=== PATIENT | male | born 1955 | race Hispanic/Latino ===

== ENCOUNTER 2016-10-10 13:59 | Emergency (ER) | payer BC ==
[2016-10-10] MEDS ORDERED: NACL 0.9% 1000 ML 1,000 ML IV ONE (14:24)
[2016-10-10] MEDS ORDERED: ZOFRAN IV ONE (14:34)
--- NOTE | 2016-10-10 14:58 | Emergency Department Report ---
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 He denies any fever. After the patient had multiple episodes of vomiting and/or retching he developed some midsternal chest discomfort. That is improved but is not completely resolved. Patient doesn't history of coronary artery disease with DE but did just have a negative stress test a few weeks ago with his public welfare director, Dr. Claude Parry. He has not taken anything for symptoms prior to coming into the emergency department. Patient has a past medical history of Crohn's as well for which she takes effusions monthly. His primary care doctor is Dioni Diop and his stock checkerer is Dr. Motley. No recent travel. ED Past Medical Hx - Past Medical History Previous Medical History?: Yes Hx Hypertension: Yes Hx Heart Attack/AMI: Yes (1996) Hx Congestive Heart Failure: No Hx Diabetes: No Hx Pulmonary Embolism: Yes Hx Asthma: No Hx COPD: No Additional medical history: CAD, STENT PLACMENT X 7. , Hx. of Crohn disease - Surgical History Past Surgical History?: Yes Hx Coronary Stent: Yes (7) Hx Open Heart Surgery: Yes Hx Cholecystectomy: Yes Additional Surgical History: CABG - Social History Smoking Status: Unknown if ever smoked Substance Use Type: None - Medications Home Medications: Home Medications Medication Instructions Recorded Confirmed Last Taken Type Famotidine [Pepcid] 20 mg PO BID 09/23/13 10/01/16 10/01/16 06:00 History 20mg Loperamide [Imodium] 12 mg PO BID 09/23/13 10/01/16 10/01/16 06:00 History 2 caps Aspirin BABY CHEW TAB 81 mg PO DAILY 03/20/15 10/01/16 10/01/16 06:00 History 81mg Lisinopril [Zestril] 5 mg PO HS 10/01/16 10/01/16 09/30/16 History 5mg Metoprolol Tartrate [Metoprolol 25 mg PO HS 10/01/16 10/01/16 09/30/16 History Tartrate] 25mg Mv-Min/FA/D3/Om-3/Dha/Epa/Fish 1 tab PO DAILY 10/01/16 10/01/16 10/01/16 06:00 History [Adult Multi + Castell-3 Gummies] 1 tab Ondansetron [Zofran Odt] 4 mg PO Q6H PRN #14 tab.rapdis 10/10/16 Unknown Rx ED Review of Systems ROS: Stated complaint: CHEST PAIN Other details as noted in HPI Comment: All other systems reviewed and negative Constitutional: denies: chills, fever Eyes: denies: eye pain, eye discharge, vision change ENT: denies: ear pain, throat pain Respiratory: denies: cough, shortness of breath, wheezing Cardiovascular: chest pain. denies: palpitations Gastrointestinal: abdominal pain, nausea, vomiting, diarrhea Genitourinary: denies: urgency, dysuria Musculoskeletal: denies: back pain, joint swelling, arthralgia Skin: denies: rash, lesions Neurological: denies: headache, weakness, paresthesias Physical Exam - Physical Exam Vital Signs: Vital Signs 10/10/16 14:11 Temperature 98.7 F Pulse Rate 80 Respiratory 22 Rate Blood Pressure 125/88 O2 Sat by Pulse 100 Oximetry Physical Exam: GENERAL: The patient is well-developed well-nourished. HEENT: Normocephalic. Atraumatic. Extraocular motions are intact. Patient has moist mucous membranes. NECK: Supple. Trachea is midline. CHEST/LUNGS: Clear to auscultation. There is no respiratory distress noted. HEART/CARDIOVASCULAR: Regular. There is no tachycardia. There is no gallop rub or murmur. ABDOMEN: Abdomen is soft, nontender. Patient has normal bowel sounds. There is no abdominal distention. SKIN: There is no rash. There is no diaphoresis. NEURO: The patient is awake, alert, and oriented. The patient is cooperative. The patient has no focal neurologic deficits. The patient has normal speech. MUSCULOSKELETAL: There is no tenderness or deformity. There is no limitation range of motion. There is no evidence of acute injury. ED Course Vital Signs 10/10/16 14:11 Temperature 98.7 F Pulse Rate 80 Respiratory 22 Rate Blood Pressure 125/88 O2 Sat by Pulse 100 Oximetry ED Medical Decision Making - Lab Data Result diagrams: 10/10/16 14:26 10/10/16 14:26 - EKG Data -: EKG Interpreted by Me EKG shows normal: sinus rhythm, axis, intervals, QRS complexes, ST-T waves Rate: normal - EKG Data When compared to previous EKG there are: previous EKG unavailable Interpretation: normal EKG - Radiology Data Radiology results: report reviewed, image reviewed interpreted by me: Chest x-ray did not show any acute process. Heart is normal shape and size. No effusions. No pneumothorax. No signs of pneumonia seen. Abdominal x-ray does not show any acute process. CT of the abdomen and pelvis with IV contrast shows no acute intra-abdominal process. Prior cholecystectomy with subsequent biliary prominence. Prominent pancreatic duct but otherwise normal-appearing pancreas. Significance of this finding is uncertain. Nodular density in the lingula. - Medical Decision Making 61-year-old male presents to the emergency department with the complaint of acute nausea, vomiting, diarrhea and some abdominal discomfort while at work. Patient was given some IV fluid resuscitation and some Zofran and this seemed to help with his symptoms. Patient's vital signs were stable including being afebrile. Patient labs were mostly unremarkable except for the patient's white blood cell count which came back at 25,000. There is no bandemia. With the patient's abdominal discomfort, history of Crohn's disease, and this leukocytosis, a CT of the abdomen and pelvis was done. It did not show any acute intra-abdominal process. There was a lingular nodular density seen however. The rest the patient's labs did not show any signs of infection or etiology of the patient's leukocytosis. Patient was reevaluated multiple times for multiple hours and says he is feeling much better and asking for discharge home. Despite the patient's leukocytosis, the patient says he is feeling back to baseline, and therefore I do not want to admit or treat the patient solely based on numbers. Patient has good follow-up with primary care, cardiology and gastroenterology if necessary. He works at [facility] [employer] [facility] and therefore has easy access to return to the emergency department if necessary. We discussed increasing oral rehydration and the patient will be discharged home with Zofran ODT. - Differential Diagnosis Crohn's, colitis, food poisoning, viral syndrome, pancreatitis Critical Care Time: No Critical care attestation.: If time is entered above; I have spent that time in minutes in the direct care of this critically ill patient, excluding procedure time. ED Disposition Clinical Impression: Dehydration, History of Crohn's disease Nausea and vomiting Qualifiers: Vomiting type: unspecified Vomiting Intractability: non-intractable Qualified Code(s): R11.2 - Nausea with vomiting, unspecified Diarrhea Qualifiers: Diarrhea type: unspecified type Qualified Code(s): R19.7 - Diarrhea, unspecified Leukocytosis Qualifiers: Leukocytosis type: unspecified Qualified Code(s): D72.829 - Elevated white blood cell count, unspecified Disposition: DISCHARGED TO HOME OR SELFCARE Is pt being admited?: No Condition: Stable Instructions: Acute Nausea and Vomiting (ED), Acute Diarrhea (ED), Abdominal Pain (ED), Dehydration (ED) Additional Instructions: Please follow-up with your primary care doctor and if necessary your stock checkerer. Return to the emergency department with any worsening of your symptoms or any acute distress. Increase your oral rehydration. Prescriptions: Ondansetron [Zofran Odt] 4 mg PO Q6H PRN #14 tab.rapdis PRN Reason: Nausea Referrals: DIONI DIOP MD [Staff Physician] - 3-5 Days NAVID CHOI MD [Staff Physician] - 3-5 Days Forms: Work/School Release Form(ED) Time of Disposition: 18:27
[2016-10-10 15:04] LABS: Anion Gap 21 mmol/L; BUN/Creatinine Ratio 19.28; Blood Urea Nitrogen 27 mg/dL (9-20); Calcium 9.5 mg/dL (8.4-10.2); Carbon Dioxide 22 mmol/L (22-30); Chloride 100.5 mmol/L (98-107); Glucose 130 mg/dL (75-100); Potassium 4.4 mmol/L (3.6-5.0); Sodium 139 mmol/L (137-145)
[2016-10-10 15:09] LABS: Creatine Kinase MB 4.4 ng/mL (0.0-4.0)
[2016-10-10 15:10] LABS: Alanine Aminotransferase 25 units/L (7-56); Albumin 4.8 g/dL (3.9-5); Albumin/Globulin Ratio 1.7 %; Alkaline Phosphatase 115 units/L (35-129); Amylase 284 units/L (27-131); Bilirubin,Direct < 0.2 mg/dL (0-0.2); Bilirubin,Total 0.3 mg/dL (0.1-1.2); Creatine Kinase 266 units/L (55-170); Lipase 124 units/L (13-60); Total Protein 7.7 g/dL (6.3-8.2)
[2016-10-10 15:18] LABS: Hematocrit 42.3 % (35.5-45.6); Hemoglobin 13.3 gm/dl (11.8-15.2); Mean Corpuscular HGB Conc 32 % (32-34); Mean Corpuscular Volume 76 fl (84-94); Platelet Count 279 K/mm3 (140-440); Red Blood Count 5.58 M/mm3 (3.65-5.03); Red Cell Distribution Width 16.7 % (13.2-15.2)
[2016-10-10 15:32] LABS: White Blood Count 25.6 K/mm3 (4.5-11.0)
--- NOTE | 2016-10-10 15:32 | XRay Report ---
Abdominal series: AP view of the chest demonstrates bypass changes. There is a tiny nodule in the left upper lobe. Calcification is noted in the nodule on recent CT scan. The lungs are clear. There is no vascular congestion. A small amount of gas is noted in the stomach but the bowel otherwise relatively gasless. There is no apparent soft tissue mass. No free air noted. Cholecystectomy clips are present as well as surgical clips over the medial lower left chest. Numerous small metallic sutures are present over the mid and lower pelvis. Impression: No acute pathology identified.
[2016-10-10 15:33] LABS: Mean Corpuscular Hemoglobin 24 pg (28-32)
[2016-10-10 15:39] LABS: Bilirubin,Indirect 0.1 mg/dL
[2016-10-10 15:58] LABS: Bilirubin,Urine Negative (Negative); Ketones,Urine Negative (Negative)
[2016-10-10 15:59] LABS: Blood,Urine Negative (Negative); Leukocyte Esterase,Urine Negative (Negative); Nitrite,Urine Negative (Negative); Urobilinogen,Urine < 2.0 mg/dL (<2.0)
[2016-10-10 16:00] LABS: Bacteria,Urine 1+ /HPF (Negative); Mucus,Urine 3+ /HPF
[2016-10-10 16:17] LABS: Basophils % (Manual) 0 % (0.0-1.8); Blastocytes % (Manual) 0 %; Eosinophils % (Manual) 0 % (0.0-4.3); Total Cells Counted Percent 5.5
[2016-10-10 16:19] LABS: Anisocytosis 1+; Diff Status Complete
[2016-10-10] MEDS ORDERED: NACL ONE (16:32)
--- NOTE | 2016-10-10 17:14 | Cat Scan Report ---
FINAL REPORT EXAM: CT ABDOMEN PELVIS W CON HISTORY: Abd pain TECHNIQUE: Standard enhanced CT of the abdomen and pelvis. Delayed imaging through the kidneys and bladder was also obtained. Coronal and sagittal reconstruction was also performed. Contrast: 100 mL Omnipaque 300 given IV. PRIORS: None. FINDINGS: Within the abdomen, the liver demonstrates several small subcentimeter rounded hypodensities, likely small cysts. On delayed images, these do not have peripheral filling to suggest hemangiomas. The largest is 8 mm in the dome of the right lobe (axial 20 image 23). There is also intrahepatic biliary dilatation. Common bile duct is dilated measuring up to 10 mm. This is likely due to the evidence for prior cholecystectomy. The pancreatic duct is prominent measuring between 3-6 mm. However, the pancreas is otherwise unremarkable. No obstruction of the distal pancreatic duct is seen. The patient has had a colectomy with the rectum still remaining in place. Surgical anastomosis sutures are noted at the proximal end of the rectum with an end-to-side anastomosis with small bowel. Remainder of the small bowel loops are normal in caliber and fold appearance. The spleen, adrenal glands, and kidneys are unremarkable. No evidence for retroperitoneal or pelvic lymphadenopathy is seen. No soft tissue mass, fluid collection, inflammatory change, or free air is seen within the abdomen or pelvis. Within the pelvis, the bladder is unremarkable. The prostate is normal. No evidence for mass or lymphadenopathy is seen in the pelvis. Images through the upper abdomen include the lung bases which demonstrates linear changes in the right middle lobe. Pleural based thickening in the anterior lingula with an uncalcified 7.0 x 9.7 mm nonspecific nodule in the anterior lingula is noted. Dedicated CT of the chest is warranted. Bony structures show no focal abnormalities and are intact. IMPRESSION: 1. no acute intra-abdominal process noted. 2. Prior cholecystectomy with subsequent biliary prominence 3. Prominent pancreatic duct with otherwise normal appearing pancreas. Significance of this finding is uncertain. 4. Nodular density in the lingula. Dedicated CT of the chest is warranted.
[2016-10-10 18:07] VITALS: BP 117/64
== END 2016-10-10 18:27 | disposition home or self-care (01) ==
LOC: ED 13:59
DX: E86.0 Dehydration (principal); D72.829 Elevated white blood cell count, unspecified; R11.2 Nausea with vomiting, unspecified; K50.90 Crohn's disease, unspecified, without complications; R19.7 Diarrhea, unspecified; I10 Essential (primary) hypertension; I25.2 Old myocardial infarction; Z86.711 Personal history of pulmonary embolism; Z79.82 Long term (current) use of aspirin
CPT/HCPCS: 36415; 74022; 74177; 80048; 80074; 81001; 82150; 82550; 82553; 83690; 84484; 85007; 85025; 93005; 93010; 96361; 96374; 99285; J2405; J7030; Q9967

== ENCOUNTER 2016-10-17 10:20 | Outpatient (CLI) | payer BC ==
[2016-10-17] MEDS ORDERED: NACL ONE (10:38)
[2016-10-17 11:51] LABS: Basophils % (Auto) 0.3 % (0.0-1.8); Eosinophils % (Auto) 4.1 % (0.0-4.3); Hematocrit 34.9 % (35.5-45.6); Hemoglobin 11.2 gm/dl (11.8-15.2); Mean Corpuscular HGB Conc 32 % (32-34); Mean Corpuscular Volume 75 fl (84-94); Platelet Count 177 K/mm3 (140-440); Red Blood Count 4.66 M/mm3 (3.65-5.03); Red Cell Distribution Width 16.6 % (13.2-15.2); White Blood Count 7.1 K/mm3 (4.5-11.0)
[2016-10-17 11:55] LABS: Mean Corpuscular Hemoglobin 24 pg (28-32)
--- NOTE | 2016-10-18 11:01 | Cat Scan Report ---
CT CHEST WITH CONTRAST: 10/17/16 10:20:00 CLINICAL: Lung nodule identified on the upper sections of an abdominal CT. Comparison: CT abdomen 10/10/[address] chest 09/08/16 TECHNIQUE: Volumetric acquisition and 1.25 mm scan reconstructions after the uneventful intravenous injection of 100cc Omnipaque 300. Consent was obtained prior to the administration of contrast. FINDINGS: A 9 mm noncalcified nodule of the lingula corresponds to the finding on recent abdominal CT. It measures 98 Hounsfield units in density.It is more prominent and slightly larger compared to the 09/08/16 CT. On that exam, it looked more like nodular scar or atelectasis. No other noncalcified lung nodules are identified. A 2.5 mm pleural-based left upper lobe calcified granuloma is stable. Mild right apical scarring. No airspace disease or pleural effusion. No mediastinal or hilar lymphadenopathy. Normal heart, aorta and pulmonary vasculature. Normal thyroid, trachea and esophagus. No axillary or supraclavicular lymphadenopathy. The upper abdomen is remarkable for hepatic cysts and biliary dilatation status post cholecystectomy. IMPRESSION: 1. A 9 mm noncalcified lingular lung nodule. It may be amenable to percutaneous needle biopsy. 2. Old granulomatous disease with a single tiny left upper lobe pleural-based calcified granuloma. 3. Biliary dilatation status post cholecystectomy.
== END 2016-10-17 10:21 | disposition home or self-care (01) ==
LOC: CT 10:20
PROVIDERS: ATTEND Internal Medicine
DX: R91.1 Solitary pulmonary nodule (principal); E23.7 Disorder of pituitary gland, unspecified; K76.89 Other specified diseases of liver; Z68.23 Body mass index [BMI] 23.0-23.9, adult; Z90.49 Acquired absence of other specified parts of digestive tract
CPT/HCPCS: 36415; 71260; 84146; 84443; 85025; Q9967

== ENCOUNTER 2017-01-13 12:35 | Day surgery (SDC) | payer BC ==
[2017-01-13 13:15] VITALS: BP 100/50
[2017-01-13] MEDS ORDERED: ENTYVIO IV SCH (14:30)
[2017-01-13] MEDS ORDERED: NACL 0.9% IV SCH (14:30)
== END 2017-01-13 14:50 | disposition home or self-care (01) ==
LOC: OPU 12:35
PROVIDERS: ATTEND Internal Medicine Gastroenterology
DX: K50.80 Crohn's disease of both small and large intestine without complications (principal); I10 Essential (primary) hypertension; I25.10 Atherosclerotic heart disease of native coronary artery without angina pectoris; Z87.891 Personal history of nicotine dependence; Z79.899 Other long term (current) drug therapy
CPT/HCPCS: 96365; J3380; J7050

== ENCOUNTER 2017-02-12 12:13 | Outpatient (CLI) | payer BC ==
[2017-02-12 12:52] LABS: Anion Gap 16 mmol/L; Blood Urea Nitrogen 23 mg/dL (9-20); Carbon Dioxide 27 mmol/L (22-30); Chloride 102.3 mmol/L (98-107); Glucose 104 mg/dL (75-100); Potassium 4.7 mmol/L (3.6-5.0); Sodium 141 mmol/L (137-145)
== END 2017-02-12 12:14 | disposition home or self-care (01) ==
LOC: LAB 12:13
DX: D35.2 Benign neoplasm of pituitary gland (principal)
CPT/HCPCS: 36415; 80048; 82533

== ENCOUNTER 2017-03-05 14:09 | Outpatient (CLI) | payer BC ==
[2017-03-05 14:34] LABS: Hematocrit 33.9 % (35.5-45.6); Hemoglobin 11.1 gm/dl (11.8-15.2); Mean Corpuscular HGB Conc 33 % (32-34); Mean Corpuscular Volume 79 fl (84-94); Platelet Count 149 K/mm3 (140-440); Red Blood Count 4.31 M/mm3 (3.65-5.03); Red Cell Distribution Width 19.4 % (13.2-15.2); White Blood Count 6.6 K/mm3 (4.5-11.0)
[2017-03-05 14:46] LABS: Mean Corpuscular Hemoglobin 26 pg (28-32)
[2017-03-05 14:50] LABS: Alanine Aminotransferase 30 units/L (7-56); Albumin 3.6 g/dL (3.9-5); Albumin/Globulin Ratio 1.3 %; Alkaline Phosphatase 107 units/L (35-129); Amylase 215 units/L (27-131); Anion Gap 16 mmol/L; Blood Urea Nitrogen 19 mg/dL (9-20); Carbon Dioxide 26 mmol/L (22-30); Chloride 102.1 mmol/L (98-107); Glucose 81 mg/dL (75-100); Lipase 114 units/L (13-60); Potassium 4.7 mmol/L (3.6-5.0); Sodium 139 mmol/L (137-145); Total Protein 6.4 g/dL (6.3-8.2)
== END 2017-03-05 14:10 | disposition home or self-care (01) ==
LOC: LAB 14:09
PROVIDERS: ATTEND Internal Medicine Gastroenterology
DX: K59.1 Functional diarrhea (principal); R11.0 Nausea
CPT/HCPCS: 36415; 80053; 82150; 83690; 85027; 86140

== ENCOUNTER 2017-04-03 14:30 | Outpatient (CLI) | payer BC ==
[2017-04-03 15:39] LABS: Anion Gap 20 mmol/L; BUN/Creatinine Ratio 18.88; Blood Urea Nitrogen 17 mg/dL (9-20); Carbon Dioxide 22 mmol/L (22-30); Chloride 99.3 mmol/L (98-107); Glucose 108 mg/dL (75-100); Potassium 4.6 mmol/L (3.6-5.0); Sodium 137 mmol/L (137-145)
== END 2017-04-03 14:31 | disposition home or self-care (01) ==
LOC: LAB 14:30
DX: D35.2 Benign neoplasm of pituitary gland (principal); I10 Essential (primary) hypertension; I25.10 Atherosclerotic heart disease of native coronary artery without angina pectoris; D64.9 Anemia, unspecified; E78.00 Pure hypercholesterolemia, unspecified; Z87.891 Personal history of nicotine dependence
CPT/HCPCS: 36415; 80048; 84439

== ENCOUNTER 2017-04-15 07:47 | Day surgery (SDC) | payer BC ==
[2017-04-15 08:12] VITALS: BP 150/88
[2017-04-15] MEDS ORDERED: NACL 0.9% IV ONE (09:00)
[2017-04-15] MEDS ORDERED: ENTYVIO IV ONE (09:00)
== END 2017-04-15 10:40 | disposition home or self-care (01) ==
LOC: OPU 07:47
PROVIDERS: ATTEND Internal Medicine Gastroenterology
DX: K50.90 Crohn's disease, unspecified, without complications (principal)
CPT/HCPCS: 96365; J3380; J7050

== ENCOUNTER 2017-05-15 13:53 | Outpatient (CLI) | payer BC ==
--- NOTE | 2017-05-18 08:34 | Magnetic Resonance Report ---
MR ABDOMEN WITH AND WITHOUT CONTRAST HISTORY: Abnormal levels of other serum enzymes. TECHNIQUE: Multisequence, multiplanar MRI before and after IV gadolinium. Thin and thick slab MRCP images. Rotational MIP images. Dynamic postcontrast imaging. COMPARISON: CT abdomen pelvis with contrast dated 10/10/16. MR abdomen report dated 02/10/12. FINDINGS: Heart size is normal. The visualized lung bases are clear. Millimetric lingular nodule appears stable. Cholecystectomy has been performed. There is moderate to to severe prominence of the pancreaticobiliary tree which appears unchanged since the previous CT abdomen/pelvis and the MR abdomen report from 2011. The common bile duct measures up to 1.5 cm. Central intrahepatic biliary ducts remain prominent as well. The pancreatic duct measures approximately 5 mm in diameter. These findings are essentially unchanged. No choledocholithiasis is detected. Ampullary dysfunction or stricture in the distal common bile duct could be considered but is thought less likely. These are probably postcholecystectomy findings. The liver and spleen are normal size and contour. A few tiny hepatic cysts are noted unchanged. No suspicious mass. The pancreatic tissue, kidneys, adrenal glands, aorta and visualized bowel loops are within normal limits. No evidence for adenopathy, ascites or inflammatory changes. No suspicious bony lesion in the visualized bony structures. There is no evidence for a abnormal enhancement on postcontrast dynamic imaging. No organ mass or inflammatory changes are appreciated. IMPRESSION: MRCP again demonstrates moderate to severe dilatation of the pancreaticobiliary tree which is unchanged from previous studies. Please see above.
== END 2017-05-15 13:54 | disposition home or self-care (01) ==
LOC: MRI 13:53
PROVIDERS: ATTEND Internal Medicine Gastroenterology
DX: K50.90 Crohn's disease, unspecified, without complications (principal); R74.8 Abnormal levels of other serum enzymes; I25.10 Atherosclerotic heart disease of native coronary artery without angina pectoris; K76.89 Other specified diseases of liver; K86.89 Other specified diseases of pancreas; Z87.891 Personal history of nicotine dependence; Z90.49 Acquired absence of other specified parts of digestive tract
CPT/HCPCS: 74183; A9577

== ENCOUNTER 2017-06-09 07:58 | Outpatient (CLI) | payer BC ==
--- NOTE | 2017-06-09 15:04 | Magnetic Resonance Report ---
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 COMPARISON: None available. TECHNIQUE: Sagittal T1, axial FLAIR and T2 whole brain sequences plus sagittal, coronal and axial thin slice postcontrast T1 pituitary sequences on a 1.5 Vonda magnet. 15cc of Multihance was injected intravenously for the contrast portion of the exam. Dynamic thin section coronal postcontrast sequences were obtained in six phases post enhancement. Consent was obtained prior to the administration of contrast. FINDINGS: The pituitary is small. No abnormal focal enhancement or lack of enhancement within the pituitary. The suprasellar cistern, optic chiasm and infundibulum of the pituitary gland appear normal. An oval area of enhancement posterior to the cavernous portion of the left ICA measures 9 x 8 x 5 mm and has central hypointense signal. This is of questionable significance especially without having a comparison MRI. Whole brain coronal, sagittal and axial T2, FLAIR and post contrast sequences are normal. IMPRESSION: Normal study except for a 9 x 8 x 5 mm enhancing lesion of the left cavernous sinus posterior to the left ICA. This lesion is of questionable significance but residual adenoma cannot be excluded. It would be helpful to compare to a prior study.
== END 2017-06-09 07:59 | disposition home or self-care (01) ==
LOC: SPVIMAG 07:58
PROVIDERS: ATTEND Neurological Surgery
DX: D35.2 Benign neoplasm of pituitary gland (principal); I11.0 Hypertensive heart disease with heart failure; I50.9 Heart failure, unspecified; I25.10 Atherosclerotic heart disease of native coronary artery without angina pectoris; E78.00 Pure hypercholesterolemia, unspecified; Z87.891 Personal history of nicotine dependence
CPT/HCPCS: 70553; A9577

== ENCOUNTER 2017-06-16 12:01 | Day surgery (SDC) | payer BC ==
[2017-06-16 12:35] VITALS: BP 116/73
[2017-06-16] MEDS ORDERED: ENTYVIO IV SCH (13:00)
[2017-06-16] MEDS ORDERED: NACL 0.9% IV SCH (13:00)
== END 2017-06-16 14:25 | disposition home or self-care (01) ==
LOC: CATHLABREC 12:01
PROVIDERS: ATTEND Internal Medicine Gastroenterology
DX: K50.80 Crohn's disease of both small and large intestine without complications (principal)
CPT/HCPCS: 96365; J3380; J7050

== ENCOUNTER 2017-11-03 09:07 | Day surgery (SDC) | payer BC ==
[2017-11-03] MEDS ORDERED: NACL 0.9% IV ONE (10:00)
[2017-11-03] MEDS ORDERED: ENTYVIO IV ONE (10:00)
[2017-11-03 11:08] VITALS: BP 133/63
== END 2017-11-03 10:40 | disposition home or self-care (01) ==
LOC: CATHLABREC 09:07
PROVIDERS: ATTEND Internal Medicine Gastroenterology
DX: K50.90 Crohn's disease, unspecified, without complications (principal)
CPT/HCPCS: 96365; J3380; J7050

== ENCOUNTER 2017-12-24 11:57 | Outpatient (CLI) | payer BC ==
[2017-12-24 12:24] LABS: Basophils % (Auto) 0.9 % (0.0-1.8); Eosinophils # (Auto) 0.2 K/mm3 (0.0-0.4); Hematocrit 34.4 % (35.5-45.6); Hemoglobin 10.9 gm/dl (11.8-15.2); Lymphocytes % (Auto) 20.4 % (13.4-35.0); Mean Corpuscular HGB Conc 32 % (32-34); Mean Corpuscular Volume 78 fl (84-94); Monocytes # (Auto) 0.4 K/mm3 (0.0-0.8); Monocytes % (Auto) 7.9 % (0.0-7.3); Platelet Count 193 K/mm3 (140-440); Red Blood Count 4.39 M/mm3 (3.65-5.03)
[2017-12-24 12:26] LABS: Mean Corpuscular Hemoglobin 25 pg (28-32)
[2017-12-24 12:30] LABS: Alanine Aminotransferase 24 units/L (7-56); BUN/Creatinine Ratio 18; Blood Urea Nitrogen 16 mg/dL (9-20); Calcium 8.8 mg/dL (8.4-10.2); Chol/HDL Ratio 2.45 %; HDL Cholesterol 66 mg/dL (40-59); Hemolysis Index 0; LDL Cholesterol,Direct 91 mg/dL (50-130)
--- NOTE | 2017-12-25 08:00 | Cat Scan Report ---
CT abdomen and pelvis with contrast: Abdominal pain. Following intravenous and oral contrast administration transverse images are obtained from lower chest to the ischium with coronal and sagittal 2-D reformatted images. Comparison is made to a comparable exam in October 2016. There is a left upper lobe pleural-based scar. Coronary vascular calcifications are present. A couple of small liver cysts are noted. The gallbladder has been removed. There is distention of intrahepatic ducts with enlarged CBD and pancreatic duct. The CBD tapers as it courses through the pancreatic head. No intra-luminal mass noted. The solid abdominal and retroperitoneal organs are otherwise unremarkable. Patient had a total colectomy with enterorectal anastomosis. There is lumbar spondylosis predominantly at L3-4 with narrowed interspace. The above findings are all unchanged from prior exam. No new findings. An MRCP in May 2017 also showed no biliary lesion. Impression: 1. Total colectomy. 2. Generally stable biliary and pancreatic ductal dilatation.
== END 2017-12-24 11:58 | disposition home or self-care (01) ==
LOC: CT 11:57
PROVIDERS: ATTEND Internal Medicine
DX: I10 Essential (primary) hypertension (principal); E78.2 Mixed hyperlipidemia; I25.10 Atherosclerotic heart disease of native coronary artery without angina pectoris; K76.89 Other specified diseases of liver; K86.89 Other specified diseases of pancreas; M47.896 Other spondylosis, lumbar region; Z90.49 Acquired absence of other specified parts of digestive tract
CPT/HCPCS: 36415; 74177; 80053; 80061; 82962; 85025; Q9967

== ENCOUNTER 2018-05-21 12:11 | Outpatient (CLI) | payer BC ==
[2018-05-21 12:48] LABS: Basophils % (Auto) 0.7 % (0.0-1.8); Eosinophils # (Auto) 0.2 K/mm3 (0.0-0.4); Eosinophils % (Auto) 2.6 % (0.0-4.3); Hematocrit 40.5 % (35.5-45.6); Hemoglobin 13.2 gm/dl (11.8-15.2); Lymphocytes # (Auto) 1.3 K/mm3 (1.2-5.4); Lymphocytes % (Auto) 22.8 % (13.4-35.0); Mean Corpuscular HGB Conc 33 % (32-34); Mean Corpuscular Hemoglobin 27 pg (28-32); Mean Corpuscular Volume 83 fl (84-94); Monocytes # (Auto) 0.6 K/mm3 (0.0-0.8); Monocytes % (Auto) 9.5 % (0.0-7.3); Platelet Count 168 K/mm3 (140-440); Red Blood Count 4.87 M/mm3 (3.65-5.03); Red Cell Distribution Width 18.4 % (13.2-15.2)
[2018-05-21 13:08] LABS: Alanine Aminotransferase 25 units/L (7-56); Albumin 3.9 g/dL (3.9-5); BUN/Creatinine Ratio 18; Blood Urea Nitrogen 16 mg/dL (9-20); Calcium 8.9 mg/dL (8.4-10.2); Chol/HDL Ratio 2.35 %; HDL Cholesterol 71 mg/dL (40-59); Hemolysis Index 6; LDL Cholesterol,Direct 94 mg/dL (50-130)
== END 2018-05-21 12:12 | disposition home or self-care (01) ==
LOC: LAB 12:11
PROVIDERS: ATTEND Internal Medicine
DX: E78.2 Mixed hyperlipidemia (principal); I10 Essential (primary) hypertension; I25.10 Atherosclerotic heart disease of native coronary artery without angina pectoris; E78.00 Pure hypercholesterolemia, unspecified; Z90.49 Acquired absence of other specified parts of digestive tract; Z87.891 Personal history of nicotine dependence; Z98.52 Vasectomy status
CPT/HCPCS: 36415; 80053; 80061; 84443; 85025

== ENCOUNTER 2018-11-29 06:21 | Outpatient (CLI) | payer BC ==
[2018-11-29 06:59] LABS: Basophils % (Auto) 0.5 % (0.0-1.8); Eosinophils # (Auto) 0.2 K/mm3 (0.0-0.4); Eosinophils % (Auto) 3.9 % (0.0-4.3); Hematocrit 39.4 % (35.5-45.6); Hemoglobin 13.4 gm/dl (11.8-15.2); Lymphocytes # (Auto) 1.5 K/mm3 (1.2-5.4); Lymphocytes % (Auto) 25.8 % (13.4-35.0); Mean Corpuscular HGB Conc 34 % (32-34); Mean Corpuscular Volume 87 fl (84-94); Monocytes # (Auto) 0.7 K/mm3 (0.0-0.8); Monocytes % (Auto) 11.8 % (0.0-7.3); Platelet Count 144 K/mm3 (140-440); Red Blood Count 4.51 M/mm3 (3.65-5.03)
[2018-11-29 07:36] LABS: Alanine Aminotransferase 15 units/L (7-56); Albumin 3.8 g/dL (3.9-5); BUN/Creatinine Ratio 15; Blood Urea Nitrogen 15 mg/dL (9-20); Calcium 8.8 mg/dL (8.4-10.2); Chol/HDL Ratio 2.66 %; HDL Cholesterol 57 mg/dL (40-59); Hemolysis Index 3; Iron 56 ug/dL (49-181); LDL Cholesterol,Direct 88 mg/dL (50-130)
== END 2018-11-29 06:22 | disposition home or self-care (01) ==
LOC: LAB 06:21
PROVIDERS: ATTEND Internal Medicine
DX: Z12.5 Encounter for screening for malignant neoplasm of prostate (principal); E78.2 Mixed hyperlipidemia; I10 Essential (primary) hypertension; E61.1 Iron deficiency; E78.00 Pure hypercholesterolemia, unspecified; M19.90 Unspecified osteoarthritis, unspecified site; Z90.49 Acquired absence of other specified parts of digestive tract; Z87.891 Personal history of nicotine dependence
CPT/HCPCS: 36415; 80053; 80061; 83540; 84153; 85025

== ENCOUNTER 2019-02-22 12:38 | Outpatient (CLI) | payer BC | END 2019-02-22 12:39 | disposition home or self-care (01) | LOC: LAB 12:38 | PROVIDERS: ATTEND Internal Medicine Gastroenterology | DX: R74.8 Abnormal levels of other serum enzymes (principal); R10.31 Right lower quadrant pain; I10 Essential (primary) hypertension; E78.00 Pure hypercholesterolemia, unspecified | CPT/HCPCS: 36415 ==

== ENCOUNTER 2019-07-05 07:39 | Outpatient (CLI) | payer BC ==
[2019-07-05 07:59] LABS: Basophils % (Auto) 0.5 % (0.0-1.8); Eosinophils # (Auto) 0.2 K/mm3 (0.0-0.4); Eosinophils % (Auto) 3.6 % (0.0-4.3); Hematocrit 37.6 % (35.5-45.6); Hemoglobin 12.5 gm/dl (11.8-15.2); Lymphocytes # (Auto) 0.9 K/mm3 (1.2-5.4); Lymphocytes % (Auto) 15.8 % (13.4-35.0); Mean Corpuscular HGB Conc 33 % (32-34); Mean Corpuscular Volume 86 fl (84-94); Monocytes # (Auto) 0.6 K/mm3 (0.0-0.8); Monocytes % (Auto) 9.5 % (0.0-7.3); Platelet Count 141 K/mm3 (140-440); Red Blood Count 4.37 M/mm3 (3.65-5.03); Red Cell Distribution Width 14.5 % (13.2-15.2)
[2019-07-05 08:22] LABS: Alanine Aminotransferase 19 units/L (7-56); Albumin 3.6 g/dL (3.9-5); BUN/Creatinine Ratio 20; Blood Urea Nitrogen 18 mg/dL (9-20); Calcium 8.5 mg/dL (8.4-10.2); Chol/HDL Ratio 2.56 %; HDL Cholesterol 60 mg/dL (40-59); Hemolysis Index 2; Iron 64 ug/dL (49-181); LDL Cholesterol,Direct 88 mg/dL (50-130)
== END 2019-07-05 07:40 | disposition home or self-care (01) ==
LOC: LAB 07:39
PROVIDERS: ATTEND Internal Medicine
DX: E78.2 Mixed hyperlipidemia (principal); I10 Essential (primary) hypertension; E61.1 Iron deficiency; E78.00 Pure hypercholesterolemia, unspecified; Z90.49 Acquired absence of other specified parts of digestive tract; Z95.1 Presence of aortocoronary bypass graft; Z87.891 Personal history of nicotine dependence
CPT/HCPCS: 36415; 80053; 80061; 83540; 85025

== ENCOUNTER 2019-07-27 07:52 | Outpatient (CLI) | payer BC ==
[2019-07-27 08:04] LABS: Basophils % (Auto) 0.8 % (0.0-1.8); Eosinophils # (Auto) 0.1 K/mm3 (0.0-0.4); Eosinophils % (Auto) 1.5 % (0.0-4.3); Hematocrit 42.4 % (35.5-45.6); Hemoglobin 14.1 gm/dl (11.8-15.2); Lymphocytes # (Auto) 0.8 K/mm3 (1.2-5.4); Lymphocytes % (Auto) 15.5 % (13.4-35.0); Mean Corpuscular HGB Conc 33 % (32-34); Mean Corpuscular Volume 86 fl (84-94); Monocytes # (Auto) 0.6 K/mm3 (0.0-0.8); Monocytes % (Auto) 12.9 % (0.0-7.3); Platelet Count 126 K/mm3 (140-440); Red Blood Count 4.95 M/mm3 (3.65-5.03); Red Cell Distribution Width 14.8 % (13.2-15.2)
[2019-07-27 08:32] LABS: Alanine Aminotransferase 284 units/L (7-56); Albumin 3.7 g/dL (3.9-5); BUN/Creatinine Ratio 16; Blood Urea Nitrogen 18 mg/dL (9-20); Calcium 8.8 mg/dL (8.4-10.2); Hemolysis Index 3
== END 2019-07-27 07:53 | disposition home or self-care (01) ==
LOC: LAB 07:52
PROVIDERS: ATTEND Internal Medicine Gastroenterology
DX: R74.8 Abnormal levels of other serum enzymes (principal); R10.84 Generalized abdominal pain; R10.31 Right lower quadrant pain; I10 Essential (primary) hypertension; I25.10 Atherosclerotic heart disease of native coronary artery without angina pectoris; E78.00 Pure hypercholesterolemia, unspecified; Z90.49 Acquired absence of other specified parts of digestive tract; Z87.891 Personal history of nicotine dependence; Z95.1 Presence of aortocoronary bypass graft
CPT/HCPCS: 36415; 80053; 85025; 86140

== ENCOUNTER 2019-07-27 13:28 | Observation (INO) | payer BC ==
--- NOTE | 2019-07-27 13:45 | Emergency Department Report ---
Blank Doc - Documentation Documentation: 64-year-old male that presents with intermittent midsternum chest pain with na usea. Describes pain as tightness. Also has SOB. This initial assessment/diagnostic orders/clinical plan/treatment(s) is/are subject to change based on patient's health status, clinical progression and re- assessment by fellow clinical providers in the ED. Further treatment and workup at subsequent clinical providers discretion. Patient/guardians urged not to elope from the ED as their condition may be serious if not clinically assessed and managed. Initial orders include: 1- Patient sent to [facility] for further evaluation and treatment 2- CBC and CMP was drawn this morning. Will order further cardiac testing. 3- EKG 4- CXR
--- NOTE | 2019-07-27 14:40 | XRay Report ---
CHEST 2 VIEWS INDICATION: Chest Pain. COMPARISON: 09/08/2016 FINDINGS: Support devices: None. Heart: Within normal limits. Pulmonary vasculature: Large central pulmonary arteries. Lungs/pleura: Lungs are hyperexpanded and hyperlucent. A few tiny calcified granulomata. No airspace disease or pleural effusion. No pneumothorax. Additional findings: Median sternotomy wires and anterior mediastinal sutures. IMPRESSION: 1. No acute findings. 2. COPD. Signer Name: Juan Pleitez MD Signed: 07/27/2019 2:35 PM Workstation Name: [id number]
[2019-07-27 16:01] LABS: INR 1.08 (0.87-1.13); Partial Thromboplastin Time 33.2 Sec. (24.2-36.6)
[2019-07-27] MEDS ORDERED: NITROGLYCERIN 0.4 MG TAB SUBL SL PRN (18:23)
[2019-07-27] MEDS ORDERED: FAMOTIDINE 20 MG/2 ML INJ IV ONE (18:23)
[2019-07-27] MEDS ORDERED: ASPIRIN 81 MG TAB CHEW PO ONE (18:23)
--- NOTE | 2019-07-27 18:24 | Emergency Department Report ---
ED Chest Pain HPI - General Chief Complaint: Chest Pain Stated Complaint: CHEST DISCOMFORT/TIGHTNESS Time Seen by Provider: 07/27/19 13:43 Source: patient, RN notes reviewed, old records reviewed Mode of arrival: Ambulatory Limitations: No Limitations - History of Present Illness Initial Comments: Cardiology: [facility] Gastroenterology: Dr Salgado Past medical history: Heart disease, stent, bypass, hypertension, chronic aspirin therapy, Crohn's disease, history of recurrent small bowel obstruction, denies DVT and pulmonary embolism risk factors this is a pleasant 64-year-old gentleman who is not known to this provider previously. The patient had a cardiac catheterization in 2013 which demonstrated a number of significant findings. Please reference the report from October 2013. The patient also had a nuclear stress test September 2016, which was read as unremarkable, with some incidental findings. Today, the patient presents with a complaint of "angina." The patient works in healthcare, and states that he feels central chest pressure, nausea, diaphoresis and shortness of breath. The symptoms are intermittent and do not radiate anywhere. They do not have exacerbating or relieving factors that he is aware of. He is endorses compliance with previous outpatient medications. He denies dietary indiscretions. He reports that symptoms today feel similar to prior episodes of "angina." He denies abdominal pain, and denies DVT and pulmonary embolism risk factors. No cardiac risk stratification since 2015 that he is aware of. MD Complaint: chest pain -: Gradual Onset: during rest Pain Location: substernal, left chest Pain Radiation: none Quality: aching Consistency: intermittent Improves With: nothing re: nausea, dyspnea Treatments Prior to Arrival: aspirin Aspirin use within the Past 7 Days: (1) Yes - Related Data Home Medications Medication Instructions Recorded Confirmed Last Taken Loperamide [Imodium] 12 mg PO BID 09/23/13 06/16/17 06/15/17 12 mg Aspirin BABY CHEW TAB 81 mg PO DAILY 03/20/15 06/16/17 06/15/17 81 mg Lisinopril [Zestril] 5 mg PO HS 10/01/16 06/16/17 06/15/17 5 mg Metoprolol Tartrate 25 mg PO HS 10/01/16 06/16/17 06/15/17 25 mg Mv-Min/FA/D3/Om-3/Dha/Epa/Fish 1 tab PO DAILY 10/01/16 06/16/17 06/15/17 [Adult Multi + Tully-3 Gummies] Pantoprazole [Protonix TAB] 40 mg PO QDAY 01/13/17 06/16/17 06/15/17 Previous Rx's Medication Instructions Recorded Last Taken Type Ondansetron [Zofran Odt] 4 mg PO Q6H PRN #14 tab.rapdis 10/10/16 2 Weeks Ago Rx ~12/30/16 Allergies Allergy/AdvReac Type Severity Reaction Status Date / Time amlodipine besylate Allergy Rash Verified 08/02/15 14:43 [From [facility]] Heart Score - HEART Score History: Moderately suspicious EKG: Non-specific Age: 45-65 Risk factors: > 3 risk factors or hx of atherosclerotic disease Troponin: < normal limit HEART Score: 5 - Critical Actions Critical Actions: 4-6 pts:12-16.6% risk of adverse cardiac event. Should be admitted ED Review of Systems ROS: Stated complaint: CHEST DISCOMFORT/TIGHTNESS Other details as noted in HPI Constitutional: diaphoresis. denies: fever Eyes: denies: eye discharge ENT: denies: congestion Respiratory: denies: wheezing Cardiovascular: chest pain Gastrointestinal: denies: vomiting Genitourinary: denies: dysuria Musculoskeletal: myalgia Skin: denies: lesions Neurological: weakness Psychiatric: anxiety ED Past Medical Hx - Past Medical History Previous Medical History?: Yes Hx Hypertension: Yes (2002) Hx Heart Attack/AMI: Yes (1996) Hx Congestive Heart Failure: No Hx Diabetes: No Hx Pulmonary Embolism: Yes (2013) Hx Arthritis: Yes Hx Asthma: No Hx COPD: No Additional medical history: CAD, STENT PLACMENT X 7. , Hx. of Crohn disease - Surgical History Past Surgical History?: Yes Hx Coronary Stent: Yes () Hx Open Heart Surgery: Yes (2013 4Vessels) Hx Cholecystectomy: Yes (2008) Additional Surgical History: CABG - Social History Smoking Status: Never Smoker Substance Use Type: Alcohol - Medications Home Medications: Home Medications Medication Instructions Recorded Confirmed Last Taken Type Loperamide [Imodium] 12 mg PO BID 09/23/13 06/16/17 06/15/17 History 12 mg Aspirin BABY CHEW TAB 81 mg PO DAILY 03/20/15 06/16/17 06/15/17 History 81 mg Lisinopril [Zestril] 5 mg PO HS 10/01/16 06/16/17 06/15/17 History 5 mg Metoprolol Tartrate 25 mg PO HS 10/01/16 06/16/17 06/15/17 History 25 mg Mv-Min/FA/D3/Om-3/Dha/Epa/Fish 1 tab PO DAILY 10/01/16 06/16/17 06/15/17 History [Adult Multi + Tully-3 Gummies] Ondansetron [Zofran Odt] 4 mg PO Q6H PRN #14 tab.rapdis 10/10/16 06/16/17 2 Weeks Ago Rx ~12/30/16 Pantoprazole [Protonix TAB] 40 mg PO QDAY 01/13/17 06/16/17 06/15/17 History ED Physical Exam - General Limitations: No Limitations General appearance: alert, in no apparent distress - Head Head exam: Present: atraumatic, normocephalic - Eye Eye exam: Present: normal appearance, EOMI. Absent: nystagmus - ENT ENT exam: Present: normal exam, normal orophraynx, mucous membranes moist, normal external ear exam - Neck Neck exam: Present: normal inspection, full ROM. Absent: tenderness, meningismus - Respiratory Respiratory exam: Present: normal lung sounds bilaterally. Absent: respiratory distress - Cardiovascular Cardiovascular Exam: Present: regular rate, normal rhythm, normal heart sounds. Absent: bradycardia, tachycardia, irregular rhythm, systolic murmur, diastolic m urmur, rubs, gallop - GI/Abdominal GI/Abdominal exam: Present: soft. Absent: distended, tenderness, guarding, rebound, rigid, pulsatile mass - Rectal Rectal exam: Present: deferred - Extremities Exam Extremities exam: Present: normal inspection, full ROM. Absent: pedal edema, calf tenderness (2+ pulses noted in the bilateral upper, lower extremities. There is no long bone tenderness. Musculoskeletal compartments are soft. The pelvis is stable.) - Back Exam Back exam: Present: normal inspection, full ROM. Absent: tenderness, CVA tend erness (R), CVA tenderness (L), paraspinal tenderness, vertebral tenderness - Neurological Exam Neurological exam: Present: alert, other (there is no facial droop. The tongue is midline. Extraocular movements are intact bilaterally. Patient speaking in full complete sentences. Shoulder shrug is intact bilaterally. Hearing is grossly intact bilaterally. Visual acuity intact to finger counting and color perception at a close distance. 5/5 strength 4 extremities. Sensation intact to light touch in 4 extremities.) - Psychiatric Psychiatric exam: Present: normal affect, normal mood - Skin Skin exam: Present: warm, dry, intact, normal color. Absent: rash ED Course Vital Signs 07/27/19 07/27/19 07/27/19 13:44 17:29 17:31 Temperature 97.9 F Pulse Rate 68 65 62 Respiratory 18 33 H 14 Rate Blood Pressure 121/85 O2 Sat by Pulse 100 Oximetry 07/27/19 07/27/19 07/27/19 17:45 18:00 18:15 Temperature Pulse Rate 55 L 58 L 56 L Respiratory 13 8 L 9 L Rate Blood Pressure 146/74 143/75 155/77 O2 Sat by Pulse 100 100 99 Oximetry 07/27/19 18:31 Temperature Pulse Rate 58 L Respiratory 11 L Rate Blood Pressure 140/95 O2 Sat by Pulse 100 Oximetry - Reevaluation(s) Reevaluation #1: 07/27/19 19:45 Dr Barbara Valencia to admit; discussed with MINERVA Gómez RAINE score - Raine Score Age > 65: (0) No Aspirin use within the Past 7 Days: (1) Yes 3 or more CAD Risk Factors: (1) Yes 2 or more Angina events in past 24 hrs: (1) Yes Known CAD with more than 50% Stenosis: (1) Yes Elevated Cardiac Markers: (0) No ST Deviation Greater than 0.5mm: (0) No RAINE Score: 4 ED Medical Decision Making - Lab Data Result diagrams: 07/27/19 18:47 07/27/19 18:47 Vital Signs 07/27/19 07/27/19 07/27/19 13:44 17:29 17:31 Temperature 97.9 F Pulse Rate 68 65 62 Respiratory 18 33 H 14 Rate Blood Pressure 121/85 O2 Sat by Pulse 100 Oximetry 07/27/19 07/27/19 07/27/19 17:45 18:00 18:15 Temperature Pulse Rate 55 L 58 L 56 L Respiratory 13 8 L 9 L Rate Blood Pressure 146/74 143/75 155/77 O2 Sat by Pulse 100 100 99 Oximetry 07/27/19 18:31 Temperature Pulse Rate 58 L Respiratory 11 L Rate Blood Pressure 140/95 O2 Sat by Pulse 100 Oximetry Lab Results 07/27/19 07/27/19 07/27/19 Range/Units 13:50 13:50 13:58 WBC (4.5-11.0) K/mm3 RBC (3.65-5.03) M/mm3 Hgb (11.8-15.2) gm/dl Hct (35.5-45.6) % MCV (84-94) fl MCH (28-32) pg MCHC (32-34) % RDW (13.2-15.2) % Plt Count (140-440) K/mm3 PT 13.9 (12.2-14.9) Sec. INR 1.08 (0.87-1.13) APTT 33.2 (24.2-36.6) Sec. Troponin T < 0.010 (0.00-0.029) ng/mL Lipase 105 H (13-60) units/L 07/27/19 Range/Units 18:47 WBC 3.7 L (4.5-11.0) K/mm3 RBC 4.73 (3.65-5.03) M/mm3 Hgb 13.4 (11.8-15.2) gm/dl Hct 40.4 (35.5-45.6) % MCV 86 (84-94) fl MCH 28 (28-32) pg MCHC 33 (32-34) % RDW 14.9 (13.2-15.2) % Plt Count 120 L (140-440) K/mm3 PT (12.2-14.9) Sec. INR (0.87-1.13) APTT (24.2-36.6) Sec. Troponin T (0.00-0.029) ng/mL Lipase (13-60) units/L - EKG Data -: EKG Interpreted by Fl EKG shows normal: sinus rhythm Rate: normal - EKG Data When compared to previous EKG there are: no significant change Interpretation: unchanged when compared t 07/27/19 19:15 EKG #1 is unchanged from prior EKG This is a sinus rhythm, 63 bpm, normal axis, QTC is 461 ms, there is left ventricular hypertrophy, there is an incomplete right bundle branch block, the EKG is abnormal, the EKG is not consistent with ST elevation myocardial infarction. EKG appears to be unchanged from prior EKG from October 2016 - Radiology Data Radiology results: pending, report reviewed, image reviewed X-ray of the chest is unremarkable for acute disease - Medical Decision Making Differential diagnosis, including not limited to: GERD, gastritis, hiatal hernia, acute coronary syndrome, stable angina, unstable angina, pneumonia Assessment and plan: 64-year-old gentleman with extensive cardiac history, not tachycardic, not tachypneic, not hypoxic, does not endorse any DVT or pulmonary embolism risk factors, and is low risk by well's criteria. EKG unchanged 1, troponin negative 1. Patient is currently chest pain-free at this time. Patient at moderate risk for major adverse cardiac event as per the heart score. We have recommended admission to the hospital for repeat cardiac risk stratification. He is amenable to this plan of care. Contacted: Cardiology, Dr. Parry, who indicates his group can follow in consultation for this patient. Hospital team was paged to arrange admission. Critical care attestation.: If time is entered above; I have spent that time in minutes in the direct care of this critically ill patient, excluding procedure time. ED Disposition Clinical Impression: CAD (coronary artery disease), Acute chest pain Disposition: 09 OP ADMIT IP TO THIS HOSP Is pt being admited?: Yes Does the pt Need Aspirin: Yes Condition: Stable Instructions: Chest Pain (ED)
[2019-07-27 19:00] LABS: Hematocrit 40.4 % (35.5-45.6); Hemoglobin 13.4 gm/dl (11.8-15.2); Mean Corpuscular HGB Conc 33 % (32-34); Mean Corpuscular Volume 86 fl (84-94); Platelet Count 120 K/mm3 (140-440); Red Blood Count 4.73 M/mm3 (3.65-5.03); Red Cell Distribution Width 14.9 % (13.2-15.2)
[2019-07-27 19:18] LABS: BUN/Creatinine Ratio 23; Blood Urea Nitrogen 18 mg/dL (9-20); Calcium 9.1 mg/dL (8.4-10.2); Hemolysis Index 19
[2019-07-27] MEDS ORDERED: MORPHINE 2 MG/1 ML INJ IV PRN (19:51)
[2019-07-27] MEDS ORDERED: HYDROmorphone 1 MG/1 ML INJ IV PRN (19:51)
[2019-07-27] MEDS ORDERED: ACETAMINOPHEN 325 MG TAB PO PRN (19:51)
[2019-07-27] MEDS ORDERED: ONDANSETRON 4 MG/2 ML INJ IV PRN (19:51)
[2019-07-27 20:24] LABS: Bilirubin,Urine NEG (Negative); Blood,Urine NEG (Negative); Color,Urine Yellow (Yellow); Hyaline Casts,Urine 4 /LPF; Mucus,Urine 2+ /HPF; Protein,Urine <15 mg/dL mg/dL (Negative); Urobilinogen,Urine < 2.0 mg/dL (<2.0)
[2019-07-27 20:46] LABS: BUN/Creatinine Ratio 20; Blood Urea Nitrogen 18 mg/dL (9-20); Calcium 8.9 mg/dL (8.4-10.2); Hemolysis Index 8
[2019-07-27 20:59] LABS: Hematocrit 40.3 % (35.5-45.6); Hemoglobin 13.4 gm/dl (11.8-15.2); Mean Corpuscular HGB Conc 33 % (32-34); Mean Corpuscular Volume 86 fl (84-94); Platelet Count 117 K/mm3 (140-440); Red Blood Count 4.72 M/mm3 (3.65-5.03); Red Cell Distribution Width 14.5 % (13.2-15.2)
[2019-07-27 21:26] LABS: Chol/HDL Ratio 2.28 %
[2019-07-27] MEDS ORDERED: LISINOPRIL 5 MG TAB PO SCH (22:00)
[2019-07-27] MEDS ORDERED: METOPROLOL TARTRATE 25 MG TAB PO SCH (22:00)
[2019-07-27 22:11] LABS: Total Cells Counted 100
[2019-07-27 22:12] LABS: Platelet Estimate Consistent w Auto; RBC Morphology Normal
--- NOTE | 2019-07-27 22:34 | History and Physical Report ---
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 Approximately 10:30 this morning in while doing his morning rounds he began to experience substernal 7/10 chest tightness, dyspnea with exertion, and diaphoresis. He immediately sat down which improved his chest pain and shortness of breath. However his pain return when he resumed activity. He also complains of dizziness and nausea throughout the day. Patient states he felt like he was going to pass out. He denies loss of consciousness, syncope, and emesis. Patient is present at bedside. Past History Past Medical History: acute [place] (1996), CAD, hypertension, other (Crohn's, recurrent small bowel obstruction) Past Surgical History: cholecystectomy (2008), CABG (4), Other (PCI 7) Social history: Family history: CAD Medications and Allergies Allergies Allergy/AdvReac Type Severity Reaction Status Date / Time amlodipine besylate Allergy Rash Verified 08/02/15 14:43 [From [facility]] Home Medications Medication Instructions Recorded Confirmed Last Taken Type Loperamide [Imodium] 12 mg PO BID 09/23/13 07/27/19 07/27/19 05:00 History Aspirin BABY CHEW TAB 81 mg PO DAILY 03/20/15 07/27/19 07/27/19 05:00 History Lisinopril [Zestril] 5 mg PO HS 10/01/16 07/27/19 07/26/19 22:00 History Metoprolol Tartrate 25 mg PO HS 10/01/16 07/27/19 07/26/19 22:00 History Pantoprazole [Protonix TAB] 40 mg PO QDAY 01/13/17 07/27/19 07/27/19 05:00 History Adalimumab [Humira] 40 mg SQ Q14D 07/27/19 07/27/19 07/14/19 22:00 History Dicyclomine [Bentyl] 10 mg PO BID 10/07/27/19 07/27/19 05:00 History Ferrous Sulfate [Feosol] 325 mg PO QDAY 07/27/19 07/27/19 07/26/19 05:00 History Ranitidine HCl [Zantac] 300 mg PO QHS 07/27/19 07/27/19 07/26/19 22:00 History Simvastatin 40 mg PO QHS 07/27/19 07/27/19 07/26/19 22:00 History Active Meds: Active Medications Acetaminophen (Tylenol) 650 mg PO Q4H PRN PRN Reason: Pain MILD(1-3)/Fever >100.5/SIMMONS Aspirin (Baby Aspirin) 81 mg PO QDAY ADONAY Atorvastatin Calcium (Lipitor) 40 mg PO QHS ADONAY Docusate Sodium (Colace) 100 mg PO BID ADONAY Enoxaparin Sodium (Enoxaparin) 40 mg SUB-Q QDAY [facility] Hydromorphone HCl (Dilaudid) 0.5 mg IV Q3H PRN PRN Reason: Pain , Severe (7-10) Lisinopril (Zestril) 5 mg PO HS ADONAY Metoprolol Tartrate (Metoprolol) 25 mg PO HS ADONAY Morphine Sulfate (Morphine) 2 mg IV Q4H PRN PRN Reason: Pain, Moderate (4-6) Nitroglycerin (Nitrostat) 0.4 mg SL .Q5MIN PRN PRN Reason: Chest Pain Ondansetron HCl (Zofran) 4 mg IV Q6H PRN PRN Reason: Nausea And Vomiting Pantoprazole Sodium (Protonix) 40 mg PO QDAY [facility]ON[facility] Sodium Chloride (Sodium Chloride Flush Syringe 10 Ml) 10 ml IV BID [facility] Sodium Chloride (Sodium Chloride Flush Syringe 10 Ml) 10 ml IV PRN PRN PRN Reason: LINE FLUSH Sodium Chloride (Sodium Chloride Flush Syringe 10 Ml) 10 ml IV PRN PRN PRN Reason: LINE FLUSH Review of Systems All systems: negative Cardiovascular: chest pain (chest tightness), shortness of breath, dyspnea on exertion, other (diaphoresis) Gastrointestinal: nausea, diarrhea, other (Crohn's disease) Neurological: other (dizziness) Exam - Physical Exam Narrative exam: General appearance: Present: No acute distress, alert and oriented 3, well- developed, pleasant, adult male - EENT Eyes: Present: PERRL, EOM intact ENT: hearing intact, although dentition - Neck Neck: Present: supple, normal ROM - Respiratory Respiratory effort: Non-labored Respiratory: bilateral: CTA - Cardiovascular Heart rate:57 (bpm) Rhythm:SB Heart Sounds: Present: S1, S2. - Extremities Extremities: no ischemia, pulses intact - Peripheral Assessment Peripheral Pulses: within normal limits - Abdominal General gastrointestinal: soft, epigastric tenderness to deep palpation, normal bowel sounds, - Integumentary Integumentary: Present: warm, dry - Musculoskeletal Musculoskeletal: able to move all extremities -Neurological Neurological: CN II-XII grossly intact - Psychiatric Psychiatric: cooperative - Constitutional Vitals: Temp Pulse Resp BP Pulse Ox 97.9 F 66 12 149/79 90 07/27/19 13:44 07/27/19 20:01 07/27/19 20:01 07/27/19 20:01 07/27/19 20:01 Results - Labs CBC & Chem 7: 07/27/19 20:06 07/27/19 20:06 Labs: Laboratory Last Values WBC 4.0 K/mm3 (4.5-11.0) L 07/27/19 20:06 RBC 4.72 M/mm3 (3.65-5.03) 07/27/19 20:06 Hgb 13.4 gm/dl (11.8-15.2) 07/27/19 20:06 Hct 40.3 % (35.5-45.6) 07/27/19 20:06 MCV 86 fl (84-94) 07/27/19 20:06 MCH 29 pg (28-32) 07/27/19 20:06 MCHC 33 % (32-34) 07/27/19 20:06 RDW 14.5 % (13.2-15.2) 07/27/19 20:06 Plt Count 117 K/mm3 (140-440) L 07/27/19 20:06 [place] % (Auto) [employer] Floor[employer] 07/27/19 20:06 Add Manual Diff Complete 07/27/19 20:06 Total Counted 100 07/27/19 20:06 Seg Neuts % (Manual) 56.0 % (40.0-70.0) 07/27/19 20:06 Band Neutrophils % 0 % 07/27/19 20:06 Lymphocytes % (Manual) 24.0 % (13.4-35.0) 07/27/19 20:06 Reactive Lymphs % (Man) 2.0 % 07/27/19 20:06 Monocytes % (Manual) 13.0 % (0.0-7.3) H 07/27/19 20:06 Eosinophils % (Manual) 4.0 % (0.0-4.3) 07/27/19 20:06 Basophils % (Manual) 1.0 % (0.0-1.8) 07/27/19 20:06 Metamyelocytes % 0 % 07/27/19 20:06 Myelocytes % 0 % 07/27/19 20:06 Promyelocytes % 0 % 07/27/19 20:06 Blast Cells % 0 % 07/27/19 20:06 Nucleated RBC % Not Reportable 07/27/19 20:06 Seg Neutrophils # Man 2.2 K/mm3 (1.8-7.7) 07/27/19 20:06 Band Neutrophils # 0.0 K/mm3 07/27/19 20:06 Lymphocytes # (Manual) 1.0 K/mm3 (1.2-5.4) L 07/27/19 20:06 Abs React Lymphs (Man) 0.1 K/mm3 07/27/19 20:06 Monocytes # (Manual) 0.5 K/mm3 (0.0-0.8) 07/27/19 20:06 Eosinophils # (Manual) 0.2 K/mm3 (0.0-0.4) 07/27/19 20:06 Basophils # (Manual) 0.0 K/mm3 (0.0-0.1) 07/27/19 20:06 Metamyelocytes # 0.0 K/mm3 07/27/19 20:06 Myelocytes # 0.0 K/mm3 07/27/19 20:06 Promyelocytes # 0.0 K/mm3 07/27/19 20:06 Blast Cells # 0.0 K/mm3 07/27/19 20:06 WBC Morphology Not Reportable 07/27/19 20:06 Hypersegmented Neuts Not Reportable 07/27/19 20:06 Hyposegmented Neuts Not Reportable 07/27/19 20:06 Hypogranular Neuts Not Reportable 07/27/19 20:06 Smudge Cells Not Reportable 07/27/19 20:06 Toxic Granulation Not Reportable 07/27/19 20:06 Toxic Vacuolation Not Reportable 07/27/19 20:06 Dohle Bodies Not Reportable 07/27/19 20:06 Pelger-Huet Anomaly Not Reportable 07/27/19 20:06 Kelli Rods Not Reportable 07/27/19 20:06 Platelet Estimate Consistent w auto 07/27/19 20:06 Clumped Platelets Not Reportable 07/27/19 20:06 Plt Clumps, EDTA Not Reportable 07/27/19 20:06 Large Platelets Not Reportable 07/27/19 20:06 Giant Platelets Not Reportable 07/27/19 20:06 Platelet Satelliting Not Reportable 07/27/19 20:06 Plt Morphology Comment Not Reportable 07/27/19 20:06 RBC Morphology Normal 07/27/19 20:06 Dimorphic RBCs Not Reportable 07/27/19 20:06 Polychromasia Not Reportable 07/27/19 20:06 Hypochromasia Not Reportable 07/27/19 20:06 Poikilocytosis Not Reportable 07/27/19 20:06 Anisocytosis Not Reportable 07/27/19 20:06 Microcytosis Not Reportable 07/27/19 20:06 Macrocytosis Not Reportable 07/27/19 20:06 Spherocytes Not Reportable 07/27/19 20:06 Pappenheimer Bodies Not Reportable 07/27/19 20:06 Sickle Cells Not Reportable 07/27/19 20:06 Target Cells Not Reportable 07/27/19 20:06 Tear Drop Cells Not Reportable 07/27/19 20:06 Ovalocytes Not Reportable 07/27/19 20:06 Helmet Cells Not Reportable 07/27/19 20:06 [place] Bodies Not Reportable 07/27/19 20:06 [place] Rings Not Reportable 07/27/19 20:06 [place] Cells Not Reportable 07/27/19 20:06 Bite Cells Not Reportable 07/27/19 20:06 Crenated Cell Not Reportable 07/27/19 20:06 Elliptocytes Not Reportable 07/27/19 20:06 Acanthocytes (Spur) Not Reportable 07/27/19 20:06 Rouleaux Not Reportable 07/27/19 20:06 Hemoglobin C Crystals Not Reportable 07/27/19 20:06 Schistocytes Not Reportable 07/27/19 20:06 Malaria parasites Not Reportable 07/27/19 20:06 Darron Bodies Not Reportable 07/27/19 20:06 Hem Pathologist Commnt No 07/27/19 20:06 PT 13.9 Sec. (12.2-14.9) 07/27/19 13:50 INR 1.08 (0.87-1.13) 07/27/19 13:50 APTT 33.2 Sec. (24.2-36.6) 07/27/19 13:50 Sodium 137 mmol/L (137-145) 07/27/19 20:06 Potassium 4.4 mmol/L (3.6-5.0) 07/27/19 20:06 Chloride 99.6 mmol/L (98-107) 07/27/19 20:06 Carbon Dioxide 24 mmol/L (22-30) 07/27/19 20:06 Anion Gap 18 mmol/L 07/27/19 20:06 BUN 18 mg/dL (9-20) 07/27/19 20:06 Creatinine 0.9 mg/dL (0.8-1.5) 07/27/19 20:06 Estimated GFR > 60 ml/min 07/27/19 20:06 BUN/Creatinine Ratio 20 % 07/27/19 20:06 Glucose 89 mg/dL (75-100) 07/27/19 20:06 Calcium 8.9 mg/dL (8.4-10.2) 07/27/19 20:06 Magnesium 2.10 mg/dL (1.7-2.3) 07/27/19 18:47 Total Creatine Kinase 156 units/L (55-170) 07/27/19 18:47 Troponin T < 0.010 ng/mL (0.00-0.029) 07/27/19 18:47 Triglycerides 71 mg/dL (2-149) 07/27/19 20:06 Cholesterol 119 mg/dL (50-199) 07/27/19 20:06 LDL Cholesterol Direct 48 mg/dL (50-130) L 07/27/19 20:06 HDL Cholesterol 52 mg/dL (40-59) 07/27/19 20:06 Cholesterol/HDL Ratio 2.28 % 07/27/19 20:06 Lipase 105 units/L (13-60) H 07/27/19 13:58 Urine Color Yellow (Yellow) 07/27/19 Unknown Urine Turbidity Clear (Clear) 07/27/19 Unknown Urine pH 5.0 (5.0-7.0) 07/27/19 Unknown Ur Specific [place] 1.025 (1.003-1.030) 07/27/19 Unknown Urine Protein <15 mg/dl mg/dL (Negative) 07/27/19 Unknown Urine Glucose (UA) Neg mg/dL (Negative) 07/27/19 Unknown Urine Ketones Neg mg/dL (Negative) 07/27/19 Unknown Urine Blood Neg (Negative) 07/27/19 Unknown Urine Nitrite Neg (Negative) 07/27/19 Unknown Urine Bilirubin Neg (Negative) 07/27/19 Unknown Urine Urobilinogen < 2.0 mg/dL (<2.0) 07/27/19 Unknown Ur Leukocyte Esterase Neg (Negative) 07/27/19 Unknown Urine WBC (Auto) 2.0 /HPF (0.0-6.0) 07/27/19 Unknown Urine RBC (Auto) 2.0 /HPF (0.0-6.0) 07/27/19 Unknown Hyaline Casts 4 /LPF 07/27/19 Unknown Urine Mucus 2+ /HPF 07/27/19 Unknown - Imaging and Cardiology Imaging and Cardiology: CXR: Impression: 1. 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 The patient's extensive cardiac history cardiology was consulted and agreed to see patient in a.m. We'll admit patient to telemetry as OBS for further evaluation. Acute atypical Chest Pain -Initiate chest pain protocol -Continuous telemetry monitoring -Continue supportive care -Pain mgmt -Troponin neg x3 -Continue ASA and Statin - Stress Test 09/2016 showed: Small basal inferior defect, consistent with diaphragmatic attenuation artifact. Otherwise this is a normal perfusion study known ischemic defects noted. -Hx of [place], CABG x4, and PCI x7 -Will defer cardiac further cardiac workup per cardiology recommendations -Cardiology consulted ( Dr. Kwan Parry with [facility]) HTN -Monitor BP -Resume home antihypertensive meds Hx Crohn's Disease -Continue Imodium Hx recurrent small bowel obstruction -Follows ([facility]) DVT PPX -on Lovenox Advance Directives: No VTE prophylaxis?: Chemical Plan of care discussed with patient/family: Yes
[2019-07-27] MEDS ORDERED: ADALIMUMAB 40 MG SQ SCH (22:45)
[2019-07-27] MEDS: DOCUSATE SODIUM 100 MG CAP PO SCH (22:56)
[2019-07-27] MEDS ORDERED: LOPERAMIDE 2 MG CAP PO PRN (23:25)
[2019-07-28 05:55] LABS: Basophils % (Auto) 0.5 % (0.0-1.8); Eosinophils # (Auto) 0.2 K/mm3 (0.0-0.4); Hematocrit 36.9 % (35.5-45.6); Hemoglobin 12.3 gm/dl (11.8-15.2); Lymphocytes % (Auto) 22.8 % (13.4-35.0); Mean Corpuscular HGB Conc 33 % (32-34); Mean Corpuscular Volume 85 fl (84-94); Monocytes # (Auto) 0.7 K/mm3 (0.0-0.8); Monocytes % (Auto) 15.9 % (0.0-7.3); Platelet Count 115 K/mm3 (140-440); Red Blood Count 4.33 M/mm3 (3.65-5.03)
[2019-07-28 06:17] LABS: BUN/Creatinine Ratio 20; Blood Urea Nitrogen 18 mg/dL (9-20); Calcium 8.6 mg/dL (8.4-10.2); Hemolysis Index 6
[2019-07-28] MEDS ORDERED: NON-FORMULARY EACH (Aspirin Baby Chew Tab 81 MG) PO SCH (10:00)
[2019-07-28] MEDS ORDERED: FAMOTIDINE 20 MG TAB PO SCH (10:00)
[2019-07-28] MEDS ORDERED: LOPERAMIDE 2 MG CAP PO PRN (10:00)
[2019-07-28] MEDS ORDERED: PANTOPRAZOLE 40 MG TAB PO SCH (10:00)
[2019-07-28] MEDS ORDERED: ASPIRIN 81 MG TAB CHEW PO SCH (10:00)
[2019-07-28] MEDS ORDERED: FERROUS SULFATE 325 MG TAB PO SCH (10:00)
[2019-07-28] MEDS ORDERED: DICYCLOMINE 10 MG CAP PO SCH (10:00)
--- NOTE | 2019-07-28 11:54 | Consultation ---
History of Present Illness Consult date: 07/28/19 Consult reason: chest pain History of present illness: Patient is a 64-year old male with a history of CAD with 4 way CABG in 2013 who has failed for outpatient cardiac follow-up. His latest cardiac workup was done in 2015. He had a thallium stress test where exercised for 7 minutes of Cj protocol. There were no ECG changes and thallium images were negative for ischemia. Ejection fraction 40-45% by echocardiogram. Patient presented with c omplaints of chest pain associated with diaphoresis, nausea and vomiting. Patient is an employee of this hospital and reports symptoms began while working on yesterday. There was no unusual shortness of breath. There was no syncope. His ECG shows a normal sinus rhythm. Cardiology consultation has been requested. Past History Past Medical History: acute [place] (1996), CAD, hypertension, other (Crohn's, hx of small bowel obstruction) Past Surgical History: cholecystectomy (2008), CABG (4 at [place] in 2013) Social history: Family history: CAD Medications and Allergies Allergies Allergy/AdvReac Type Severity Reaction Status Date / Time amlodipine besylate Allergy Rash Verified 08/02/15 14:43 [From [facility]] Home Medications Medication Instructions Recorded Confirmed Last Taken Type Loperamide [Imodium] 12 mg PO BID 09/23/13 07/27/19 07/27/19 05:00 History Aspirin BABY CHEW TAB 81 mg PO DAILY 03/20/15 07/27/19 07/27/19 05:00 History Lisinopril [Zestril] 5 mg PO HS 10/01/16 07/27/19 07/26/19 22:00 History Metoprolol Tartrate 25 mg PO HS 10/01/16 07/27/19 07/26/19 22:00 History Pantoprazole [Protonix TAB] 40 mg PO QDAY 01/13/17 07/27/19 07/27/19 05:00 History Adalimumab [Humira] 40 mg SQ Q14D 07/27/19 07/27/19 07/14/19 22:00 History Dicyclomine [Bentyl] 10 mg PO BID 07/27/19 07/27/19 07/27/19 05:00 History Ferrous Sulfate [Feosol] 325 mg PO QDAY 07/27/19 07/27/19 07/26/19 05:00 History Ranitidine HCl [Zantac] 300 mg PO QHS 07/27/19 07/27/19 07/26/19 22:00 History Simvastatin 40 mg PO QHS 07/27/19 07/27/19 07/26/19 22:00 History Active Meds: Active Medications Acetaminophen (Tylenol) 650 mg PO Q4H PRN PRN Reason: Pain MILD(1-3)/Fever >100.5/SIMMONS Aspirin (Baby Aspirin) 81 mg PO QDAY [facility] Atorvastatin Calcium (Lipitor) 40 mg PO QHS [facility] Last Admin: 07/27/19 22:56 Dose: 40 mg Documented by: Dicyclomine HCl (Bentyl) 10 mg PO BID [facility] Docusate Sodium (Colace) 100 mg PO BID [facility] Last Admin: 07/27/19 22:56 Dose: Not Given Documented by: Enoxaparin Sodium (Enoxaparin) 40 mg SUB-Q QDAY [facility] Famotidine (Pepcid) 20 mg PO BID [facility] Ferrous Sulfate (Feosol) 325 mg PO QDAY [facility] Hydromorphone HCl (Dilaudid) 0.5 mg IV Q3H PRN PRN Reason: Pain , Severe (7-10) Lisinopril (Zestril) 5 mg PO HS [facility] Last Admin: 07/27/19 22:56 Dose: 5 mg Documented by: Loperamide HCl (Imodium) 12 mg PO BID PRN PRN Reason: Diarrhea Metoprolol Tartrate (Metoprolol) 25 mg PO HS [facility] Last Admin: 07/27/19 22:56 Dose: 25 mg Documented by: Miscellaneous Medication (Adalimumab [Humira]) 40 mg SQ Q14D [facility] Morphine Sulfate (Morphine) 2 mg IV Q4H PRN PRN Reason: Pain, Moderate (4-6) Nitroglycerin (Nitrostat) 0.4 mg SL .Q5MIN PRN PRN Reason: Chest Pain Ondansetron HCl (Zofran) 4 mg IV Q6H PRN PRN Reason: Nausea And Vomiting Pantoprazole Sodium (Protonix) 40 mg PO QDAY [facility] Sodium Chloride (Sodium Chloride Flush Syringe 10 Ml) 10 ml IV BID [facility] Last Admin: 07/27/19 22:56 Dose: 10 ml Documented by: Sodium Chloride (Sodium Chloride Flush Syringe 10 Ml) 10 ml IV PRN PRN PRN Reason: LINE FLUSH Physical Examination Vital Signs Temp Pulse Resp BP Pulse Ox 97.9 F 68 18 121/85 100 07/27/19 13:44 07/27/19 13:44 07/27/19 13:44 07/27/19 13:44 07/27/19 13:44 General appearance: no acute distress HEENT: Positive: PERRL Neck: Positive: trachea midline Cardiac: Positive: Reg Rate and Rhythm Lungs: Positive: Normal Breath Sounds Neuro: Positive: Grossly Intact Extremities: Absent: edema Results 07/28/19 04:39 07/28/19 04:39 Coagulation 07/27/19 Range/Units 13:50 PT 13.9 (12.2-14.9) Sec. INR 1.08 (0.87-1.13) APTT 33.2 (24.2-36.6) Sec. Lipids 07/27/19 Range/Units 20:06 Triglycerides 71 (2-149) mg/dL Cholesterol 119 (50-199) mg/dL HDL Cholesterol 52 (40-59) mg/dL Cholesterol/HDL Ratio 2.28 % CBC 07/27/19 07/27/19 07/28/19 Range/Units 18:47 20:06 04:39 WBC 3.7 L 4.0 L 4.5 (4.5-11.0) K/mm3 RBC 4.73 4.72 4.33 (3.65-5.03) M/mm3 Hgb 13.4 13.4 12.3 (11.8-15.2) gm/dl Hct 40.4 40.3 36.9 (35.5-45.6) % Plt Count 120 L 117 L 115 L (140-440) K/mm3 Lymph # 1.0 L (1.2-5.4) K/mm3 [place] # 0.7 (0.0-0.8) K/mm3 Eos # 0.2 (0.0-0.4) K/mm3 Baso # 0.0 (0.0-0.1) K/mm3 Comprehensive Metabolic Panel 07/27/19 07/27/19 07/28/19 Range/Units 18:47 20:06 04:39 Sodium 139 137 139 (137-145) mmol/L Potassium 4.1 4.4 3.8 (3.6-5.0) mmol/L Chloride 100.8 99.6 101.4 (98-107) mmol/L Carbon Dioxide 24 24 27 (22-30) mmol/L BUN 18 18 18 (9-20) mg/dL Creatinine 0.8 0.9 0.9 (0.8-1.5) mg/dL Glucose 80 89 81 (75-100) mg/dL Calcium 9.1 8.9 8.6 (8.4-10.2) mg/dL Assessment and Plan - Patient Problems (1) Acute chest pain Current Visit: Yes Status: Acute Plan to address problem: Atypical chest pain ECG benign negative troponin For stress thallium test today. Results are pending. (2) CAD (coronary artery disease) Current Visit: Yes Status: Chronic
[2019-07-28 12:52] VITALS: BP 150/77
[2019-07-28] MEDS: ENOXAPARIN 40 MG/0.4 ML INJ SUB-Q SCH ×2 (13:13→13:20)
[2019-07-28] MEDS: DOCUSATE SODIUM 100 MG CAP PO SCH ×2 (13:13→13:20)
--- NOTE | 2019-07-28 15:09 | Discharge Summary ---
Providers - Providers Date of Admission: 07/27/19 19:46 Date of discharge: 07/28/19 Attending physician: SHE RAMIREZ 07/27/19 Consult to Cardiac Rehabilitation [CONS] Routine Reason For Exam: Phase I 07/27/19 18:23 Consult to Physician [CONS] Urgent Comment: Consulting Provider: JULIANA CUMMINGS Physician Instructions: Reason For Exam: cp known to you Primary care physician: DIONI DIOP Hospitalization Condition: Fair Disposition: DC-01 TO HOME OR SELFCARE Exam - Constitutional Vitals: Temp Pulse Resp BP Pulse Ox 98.3 F 54 L 18 150/77 100 07/28/19 08:13 07/28/19 10:00 07/28/19 08:13 07/28/19 12:14 07/28/19 08:13 Plan Activity: advance as tolerated Diet: low fat, low cholesterol, low salt Plan of Treatment: 1.Follow up with PCP in 1 week. 2.follow up with cardiology in 1 week Follow up with: DIONI DIOP MD [Primary Care Provider] - 3-5 Days
--- NOTE | 2019-07-28 21:48 | Treadmill Report ---
THALLIUM STRESS TEST LEFT VENTRICLE: Left ventricular chamber size is within normal spread. Perfusion study demonstrates homogeneous uptake of the tracer in all segments, no defects identified. Gated analysis demonstrates normal left ventricular systolic function, ejection fraction 57%. CONCLUSION: Normal myocardial perfusion study. JOB# [id number] CA/NTS
== END 2019-07-28 16:20 | disposition home or self-care (01) ==
LOC: ED 13:28 → 4A 19:46
PROVIDERS: ADMIT Internal Medicine; ATTEND Internal Medicine
DX: R07.89 Other chest pain (principal); I25.10 Atherosclerotic heart disease of native coronary artery without angina pectoris; I10 Essential (primary) hypertension; K50.90 Crohn's disease, unspecified, without complications; K56.609 Unspecified intestinal obstruction, unspecified as to partial versus complete obstruction; I25.2 Old myocardial infarction; M19.90 Unspecified osteoarthritis, unspecified site; Z90.49 Acquired absence of other specified parts of digestive tract; Z79.82 Long term (current) use of aspirin; Z86.711 Personal history of pulmonary embolism; Z95.1 Presence of aortocoronary bypass graft
CPT/HCPCS: 36415; 71046; 78452; 80048; 80061; 81001; 82550; 83690; 83735; 84484; 85007; 85025; 85027; 85610; 85730; 93005; 93010; 93017; 96374; 99284; A9270; A9502; G0378; J3246; J1650